=== PATIENT | male | born 1990 | race African-American/Black ===

== ENCOUNTER 2018-10-26 10:35 | Emergency (ER) | payer SELFPAY ==
[~2018-10-26] VITALS: Ht 172.7 cm; Wt 68.2 kg
[2018-10-26 10:47] VITALS: BP 112/73; TEMP 98.1
[2018-10-26 13:52] VITALS: PULSE 54
== END 2018-10-26 13:54 | disposition home or self-care (01) ==
LOC: COL.ER 10:35
DX: J06.9 Acute upper respiratory infection, unspecified (principal); Z20.2 Contact with and (suspected) exposure to infections with a predominantly sexual mode of transmission
CPT/HCPCS: J0696

== ENCOUNTER 2019-05-04 05:40 | Emergency (ER) | payer SELFPAY ==
[~2019-05-04] VITALS: Ht 172.7 cm; Wt 70.5 kg
[2019-05-04 05:53] VITALS: BP 113/75; TEMP 98
[2019-05-04 08:01] LABS: COLLECTION METHOD CLEAN CATCH
[2019-05-04 08:21] LABS: MUCOUS Present /lpf; PH 6 (5-8); SQUAMOUS EPITHELIAL None Seen /hpf; URINE APPEARANCE Clear; URINE BACTERIA Moderate /hpf; URINE BILIRUBIN Negative (NEGATIVE); URINE BLOOD Negative (NEGATIVE); URINE COLOR Yellow; URINE GLUCOSE Negative (NEGATIVE); URINE KETONE Negative (NEGATIVE); URINE LEUKOCYTE ESTERASE Negative (NEGATIVE); URINE NITRATE Negative (NEGATIVE); URINE PROTEIN(semi-quant) Negative (NEGATIVE); URINE UROBILINOGEN Negative (NEGATIVE)
[2019-05-04 08:33] VITALS: PULSE 76
== END 2019-05-04 08:31 | disposition home or self-care (01) ==
LOC: COL.ER 05:40
PROVIDERS: Emergency Medicine
DX: R19.7 Diarrhea, unspecified (principal); R30.0 Dysuria
CPT/HCPCS: J0696

== ENCOUNTER 2019-10-17 22:30 | Emergency (ER) | payer SELFPAY ==
[~2019-10-17] VITALS: Ht 172.7 cm; Wt 70.5 kg
[2019-10-18 00:49] VITALS: BP 110/73; PULSE 52; TEMP 98.2
== END 2019-10-18 00:49 | disposition home or self-care (01) ==
LOC: COL.ER 22:30
DX: J06.9 Acute upper respiratory infection, unspecified (principal); F17.290 Nicotine dependence, other tobacco product, uncomplicated

== ENCOUNTER 2019-10-20 10:25 | Emergency (ER) | payer SELFPAY ==
[~2019-10-20] VITALS: Ht 170.2 cm; Wt 70.5 kg
[2019-10-20 10:31] VITALS: BP 120/70
[2019-10-20 11:47] LABS: STREP SCREEN NEGATIVE
[2019-10-20 12:50] VITALS: PULSE 62; TEMP 99.5
[2019-10-20] MEDS ORDERED: PREDNISONE20 MG PO (12:50)
== END 2019-10-20 12:55 | disposition home or self-care (01) ==
LOC: COL.ER 10:25
PROVIDERS: Nurse Practitioner
DX: J40 Bronchitis, not specified as acute or chronic (principal)

== ENCOUNTER 2019-12-08 14:45 | Emergency (ER) | payer SELFPAY ==
[~2019-12-08] VITALS: Ht 172.7 cm; Wt 70.9 kg
[~2019-12-08 14:45] MED LIST: PREDNISONE20 MG PO
[2019-12-08 14:53] VITALS: BP 107/58
[2019-12-08] MEDS ORDERED: ZITHROMAX Z PA250 MG PO (16:44)
[2019-12-08 16:49] VITALS: PULSE 47; TEMP 98.2
== END 2019-12-08 16:49 | disposition home or self-care (01) ==
LOC: COL.ER 14:45
DX: J40 Bronchitis, not specified as acute or chronic (principal); F17.290 Nicotine dependence, other tobacco product, uncomplicated; Z79.52 Long term (current) use of systemic steroids

== ENCOUNTER 2021-09-09 16:17 | Emergency (ER) | payer SELFPAY ==
[~2021-09-09] VITALS: Ht 172.7 cm; Wt 70.5 kg
[~2021-09-09 16:17] MED LIST changes: +ZITHROMAX Z PA250 MG PO
[2021-09-09 16:30] VITALS: BP 127/77; TEMP 97.8
[2021-09-09 17:57] VITALS: PULSE 65
== END 2021-09-09 17:56 | disposition home or self-care (01) ==
LOC: COL.ER 16:17
DX: J06.9 Acute upper respiratory infection, unspecified (principal); F17.200 Nicotine dependence, unspecified, uncomplicated; Z20.822 Contact with and (suspected) exposure to COVID-19

== ENCOUNTER 2021-12-13 13:00 | Outpatient (RCR) | payer OTHER | END 2021-12-16 | disposition home or self-care (01) | LOC: WSOT | DX: S54.92XA Injury of unspecified nerve at forearm level, left arm, initial encounter (principal) ==

== ENCOUNTER 2022-01-13 13:30 | Outpatient (RCR) | payer OTHER | END 2022-01-16 | LOC: WSOT | DX: S54.02XA Injury of ulnar nerve at forearm level, left arm, initial encounter (principal) ==

== ENCOUNTER 2022-02-10 11:00 | Outpatient (RCR) | payer OTHER | END 2022-02-15 | disposition home or self-care (01) | LOC: WSOT | DX: S56.11 Strain of flexor muscle, fascia and tendon of other and unspecified finger at forearm level (principal); S64.02XD Injury of ulnar nerve at wrist and hand level of left arm, subsequent encounter; X58.XXXD Exposure to other specified factors, subsequent encounter ==

== ENCOUNTER 2022-02-28 14:15 | Outpatient (RCR) | payer OTHER | END 2022-03-18 | disposition home or self-care (01) | LOC: WSOT | DX: S44.02XD Injury of ulnar nerve at upper arm level, left arm, subsequent encounter (principal); X58.XXXD Exposure to other specified factors, subsequent encounter ==

== ENCOUNTER 2022-04-08 10:00 | Outpatient (RCR) | payer OTHER | END 2022-04-17 | disposition home or self-care (01) | LOC: WSOT | DX: S44.02XA Injury of ulnar nerve at upper arm level, left arm, initial encounter (principal) ==

== ENCOUNTER 2022-04-24 09:30 | Outpatient (RCR) | payer OTHER | END 2022-05-18 | disposition home or self-care (01) | LOC: WSOT | DX: S66.121D Laceration of flexor muscle, fascia and tendon of left index finger at wrist and hand level, subsequent encounter (principal); X58.XXXD Exposure to other specified factors, subsequent encounter ==

== ENCOUNTER 2022-08-27 10:26 | Emergency (ER) | payer SELFPAY ==
[~2022-08-27] VITALS: Ht 170.2 cm; Wt 68.2 kg
[2022-08-27 10:32] VITALS: TEMP 97.8
[2022-08-27 11:36] LABS: COLLECTION METHOD CLEAN CATCH
[2022-08-27 12:11] LABS: SQUAMOUS EPITHELIAL None Seen /hpf (0-10); URINE BACTERIA None Seen /hpf (NONE SEEN); URINE RBC 0-2 /hpf (0-2)
[2022-08-27 12:13] LABS: URINE APPEARANCE Clear (CLEAR/HAZY); URINE COLOR Yellow (YELLOW)
[2022-08-27 12:14] LABS: URINE BLOOD Negative (NEGATIVE); URINE GLUCOSE Negative (NEGATIVE); URINE KETONE Negative (NEGATIVE); URINE NITRATE Negative (NEGATIVE); URINE PROTEIN(semi-quant) Negative (NEGATIVE)
[2022-08-27 12:27] LABS: BASO % 0.9 % (0.0-2.0); EOS # 0.1 K/mm3 (0.0-0.7); EOS % 3.4 % (0.0-4.0); GRAN # 1.3 K/mm3 (1.4-6.5); GRAN % 40.7 % (42.2-75.2); HEMATOCRIT 46.1 % (42.0-52.0); HEMOGLOBIN 15.3 g/dl (13.5-18.0); LYMPH # 1.5 K/mm3 (1.2-3.4); LYMPH % 45.9 % (20.0-51.0); MEAN CELL VOLUME 85 fl (80.0-100.0); MEAN CORPUSCULAR HEMOGLOBIN 28 pg (27-31); MEAN CORPUSCULAR HGB CONC 33 g/dl (33.0-37.0); MEAN PLATELET VOLUME 9.9 fl (7.4-10.4); MONO # 0.3 K/mm3 (0.1-0.6); MONO % 8.8 % (1.7-9.3); PLATELET COUNT 241 K/mm3 (130-400); REDCELL DISTRIBUTION WIDTH-CV 14.2 % (11.5-14.5)
[2022-08-27 12:35] LABS: ALBUMIN 4.6 gm/dL (3.5-5.0); BILIRUBIN,TOTAL 0.5 mg/dL (0.2-1.2); CALCIUM 9.5 mg/dL (8.4-10.2); CREATININE, serum 1.1 mg/dL (0.72-1.25); POTASSIUM 4.5 mmol/L (3.5-4.5); TOTAL PROTEIN 7.8 gm/dL (6.2-8.1)
[2022-08-27 13:36] VITALS: BP 127/93; PULSE 60
== END 2022-08-27 13:36 | disposition home or self-care (01) ==
LOC: COL.ER 10:26
PROVIDERS: Personal Emergency Response Attendant
DX: R11.10 Vomiting, unspecified (principal); N34.2 Other urethritis; R19.7 Diarrhea, unspecified; F17.210 Nicotine dependence, cigarettes, uncomplicated; Z28.310 Unvaccinated for COVID-19
CPT/HCPCS: J0696; J2270; J7030